=== PATIENT | female | born 1975 ===

== ENCOUNTER 2020-08-16 10:00 | Inpatient (IN) | payer OTHER ==
[~2020-08-16] VITALS: Ht 162.6 cm; Wt 81.6 kg
[2020-08-16] MEDS ORDERED: ATIVAN PO (13:34)
[2020-08-22] MEDS ORDERED: DESVENLAFAXINE50 M3 (09:40)
[2020-08-22] MEDS ORDERED: ATIVAN0.5 M1 PO (09:41)
[2020-08-24] MEDS ORDERED: TANDEM DUAL AC106 MG PO (11:00)
[2020-08-24] MEDS ORDERED: ULTRACET PO (11:01)
[2020-08-24] MEDS ORDERED: COLACE100 MG PO (11:01)
== END 2020-08-24 15:18 | disposition home or self-care (01) | DRG 743 ==
LOC: O/R 08-22 05:54 → OB/GYN 08-22 05:54 → SURH 08-22 07:00 → OB/GYN 08-22 13:15
PROVIDERS: Urology; ADMIT Obstetrics & Gynecology; ATTEND Obstetrics & Gynecology
PROC: 0USG0ZZ Reposition Vagina, Open Approach (ICD-10-PCS; 2020-08-22)
PROC: 0T788DZ Dilation of Bilateral Ureters with Intraluminal Device, Via Natural or Artificial Opening Endoscopic (ICD-10-PCS; 2020-08-22)
PROC: 0UT90ZZ Resection of Uterus, Open Approach (ICD-10-PCS; principal; 2020-08-22 07:00)
PROC: 0UB70ZZ Excision of Bilateral Fallopian Tubes, Open Approach (ICD-10-PCS; 2020-08-22 07:00)
DX: D25.2 Subserosal leiomyoma of uterus (principal); N80.0 Endometriosis of uterus; N72 Inflammatory disease of cervix uteri; N73.6 Female pelvic peritoneal adhesions (postinfective); D50.8 Other iron deficiency anemias; N92.0 Excessive and frequent menstruation with regular cycle; R19.00 Intra-abdominal and pelvic swelling, mass and lump, unspecified site